=== PATIENT | male | born 1985 | race Asian ===

== ENCOUNTER 2020-03-22 11:26 | Emergency (ER) | payer SELFPAY ==
[~2020-03-22] VITALS: Ht 175.3 cm; Wt 79.4 kg
[2020-03-22 11:37] VITALS: BP 124/71
--- NOTE | 2020-03-22 12:00 | NUR ---
Patient discharged to home in stable condition. Written and verbal after care instructions given. Patient verbalizes understanding of instruction.
== END 2020-03-22 12:00 | disposition home or self-care (01) ==
LOC: ER 11:26
DX: L74.0 Miliaria rubra (principal); F12.90 Cannabis use, unspecified, uncomplicated; Z60.2 Problems related to living alone

== ENCOUNTER 2021-03-14 15:57 | Emergency (ER) | payer MEDICAID ==
[~2021-03-14] VITALS: Ht 175.3 cm; Wt 77.1 kg
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
[2021-03-14] MEDS ORDERED: IBUPROFEN 600 MG TABLET ONE (16:24)
--- NOTE | 2021-03-14 16:29 | NUR ---
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
[2021-03-14] MEDS ORDERED: IBUPROFEN 600 MG TABLET PO ONE (16:30)
[2021-03-14] MEDS ORDERED: IBUP-1955 PO (16:55)
[2021-03-14 17:22] VITALS: BP 118/70
== END 2021-03-14 17:30 | disposition home or self-care (01) ==
LOC: ER 16:00
DX: M79.642 Pain in left hand (principal); F12.90 Cannabis use, unspecified, uncomplicated; Z60.2 Problems related to living alone; V49.49XA Driver injured in collision with other motor vehicles in traffic accident, initial encounter; Y93.89 Activity, other specified; Y92.413 State road as the place of occurrence of the external cause; Y99.8 Other external cause status
CPT/HCPCS: 73130-TC